=== PATIENT | male | born 1940 ===

== ENCOUNTER → 2022-04-27 09:15 | Outpatient (BNVA) | payer MEDICARE, SELFPAY | PROVIDERS: PCP Internal Medicine; Visit Provider Psychiatry & Neurology Neurology | DX: F03.90 Unspecified dementia, unspecified severity, without behavioral disturbance, psychotic disturbance, mood disturbance, and anxiety (principal); R51.9 Headache, unspecified; G89.29 Other chronic pain | CPT/HCPCS: 99202 ==